=== PATIENT | female | born 1985 | race American Indian/Alaskan Native ===

== ENCOUNTER 2018-07-27 16:12 | Inpatient (IN) | payer OTHER ==
--- NOTE | 2018-07-27 16:46 | C.PDOC ---
History Of Present Illness 32 y/o female, w/PMhx of depression and anxiety, presents to the ER complaining of anxiety and possible suicidal ideation. Patient states that she started a new job recently. Patient reports that she was late to her work earlier, she was late to work again today. She notes that she was drinking today. Denies having homicidal ideation, fall, trauma, injuries, CP, SOB, fever, and chills. Time Seen by Provider: 07/27/18 16:45 Chief Complaint (Nursing): Anxiety History Per: Patient History/Exam Limitations: no limitations Onset/Duration Of Symptoms: Days Current Symptoms Are (Timing): Still Present Severity: Moderate Past Medical History Reviewed: Historical Data, Nursing Documentation, Vital Signs Vital Signs: Last Vital Signs Temp 97.5 F L 07/27/18 16:17 Pulse 101 H 07/27/18 16:17 Resp 18 07/27/18 16:17 BP 133/91 H 07/27/18 16:17 Pulse Ox 98 07/27/18 19:59 - Medical History PMH: Anxiety, Depression, Seizures Surgical History: No Surg Hx Family History: States: No Known Family Hx - Social History Hx Alcohol Use: Yes Hx Substance Use: No - Immunization History Hx Tetanus Toxoid Vaccination: No Hx Influenza Vaccination: No Hx Pneumococcal Vaccination: No Review Of Systems Except As Marked, All Systems Reviewed And Found Negative. Constitutional: Negative for: Fever, Chills Cardiovascular: Negative for: Chest Pain Respiratory: Negative for: Shortness of Breath Psych: Positive for: Anxiety Physical Exam - Physical Exam Appears: Other (anxious) Skin: Normal Color, Warm, Dry Head: Atraumatic, Normacephalic Eye(s): bilateral: Normal Inspection Nose: Normal Oral Mucosa: Moist Neck: Supple, Other (no meningeal signs) Chest: Symmetrical Cardiovascular: Rhythm Regular Respiratory: Normal Breath Sounds, No Rales, No Rhonchi, No Wheezing Gastrointestinal/Abdominal: Normal Exam, Soft, No Tenderness, No Guarding, No Rebound Extremity: Normal ROM Extremity: Bilateral: Atraumatic Neurological/Psych: Oriented x3, Normal Speech, Normal Motor, Normal Sensation Gait: Steady ED Course And Treatment - Laboratory Results Result Diagrams: 07/27/18 17:31 07/27/18 17:31 O2 Sat by Pulse Oximetry: 98 (RA) Pulse Ox Interpretation: Normal Medical Decision Making Medical Decision Making: Well appearing 32 yr old female p/w anxiety w/ recent work related stressor. Normal neuro exam. Good gait. No meningeal signs. Noted drinking today but is clincally sober on my exam. Pending labs. 1800 Paged crisis: Crisis to see pt labs resulted alcohol elevated 1999 labs unremarkable medically clear seen by crisis: to be admitted by Dr. Betts For MDD Disposition - Disposition Disposition Time: 20:00 Condition: GOOD Forms: [facility] (Peruvian) - Clinical Impression Clinical Impression: MDD (major depressive disorder) - Scribe Statement The provider has reviewed the documentation as recorded by the Scribe Stas Diallo Provider Attestation: All medical record entries made by the Scribe were at my direction and personally dictated by me. I have reviewed the chart and agree that the record accurately reflects my personal performance of the history, physical exam, medical decision making, and the department course for this patient. I have also personally directed, reviewed, and agree with the discharge instructions and disposition.
[2018-07-27 17:37] LABS: BASO % 0.9 % (0.0-2.0); EOS % 0.4 % (0.0-4.0); HEMOGLOBIN 13.2 g/dL (11.0-16.0); LYMPH % 55.7 % (20.0-40.0); MEAN CORPUSCULAR HEMOGLOBIN 30.9 pg (27.0-31.0); MEAN PLATELET VOLUME 7.9 fL (7.2-11.7); MONO # 0.5 K/uL (0.0-0.8); MONO % 8.7 % (0.0-10.0); NEUT # 1.8 K/uL (1.8-7.0); NEUT % 34.3 % (50.0-75.0); NRBC % 0.4 % (0.0-2.0); RBC 4.25 Mil/uL (3.80-5.20); RED CELL DISTRIBUTION WIDTH 14.5 % (11.5-14.5); WHITE BLOOD COUNT 5.3 K/uL (4.8-10.8)
[2018-07-27 17:43] LABS: SQUAMOUS EPITHIAL 2 /hpf (0-5); URINE BACTERIA RARE (<OCC); URINE BILIRUBIN NEGATIVE (NEGATIVE); URINE BLOOD NEGATIVE (NEGATIVE); URINE CLARITY Clear (Clear); URINE COLOR Yellow (YELLOW); URINE GLUCOSE (UA) NORMAL (Normal); URINE LEUKOCYTE ESTERASE 2+ Leu/uL (Negative); URINE PROTEIN NEGATIVE (NEGATIVE); URINE UROBILINOGEN NORMAL mg/dL (0.2-1.0)
[2018-07-27 17:53] LABS: BARBITURATES, UR NEGATIVE (NEGATIVE); BENZODIAZEPINES, UR NEGATIVE (NEGATIVE); OPIATES, UR NEGATIVE (NEGATIVE); PHENCYCLIDINE, UR NEGATIVE (NEGATIVE)
[2018-07-27 17:58] LABS: ALB/GLOB RATIO 1.3 (1.0-2.1); ALBUMIN 4.6 g/dL (3.5-5.0); ALT/SGPT 87 U/L (9-52); AST/SGOT 90 U/L (14-36); BLOOD UREA NITROGEN 6 mg/dL (7-17); CALCIUM 9.4 mg/dl (8.6-10.4); GFR NON-AFRICAN AMERICAN > 60
[2018-07-27 17:59] LABS: ACETAMINOPHEN < 10.0 ug/mL (10.0-30.0); SALICYLATE < 1.0 mg/dL 1
--- NOTE | 2018-07-27 21:23 | PCM.BM ---
<Salazar Tay - Last Filed: 07/27/18 21:22> Treatment Plan Problems - Problems identified on initial assessmt Anxiety Date Initiated: 07/27/18 Time Initiated: 21:22 Status: Active Depression Date Initiated: 07/27/18 Time Initiated: 21:22 Status: Active Treatment assets and liabiliti Patient Assests: cooperative, educated, ADL independent, good support system (Parents involved in care), negotiates basic needs, cognitively intact Patient Liabilities: financial problems (Unemployed), substance abuse (Alcohol), medical problems (Anxiety, Depression) - Milieu Protocol Maintain good personal hygiene: daily Encourage regular showers, daily Remind patient to perform daily oral care, every shift Assist patient to perform ADL's Conduct patient checks and document Observation sheet: Q15 minutes (For safety) Maintain personal safety: every shift Educate patient to report safety concerns to staff, every shift Monitor environment for contraband/sharps Medication safety: Monitor for expected outcome, potential side effects: every shift, Assess barriers to learning: every shift, Assess readiness for medication education: every shift <Dhiraj Betts - Last Filed: 07/28/18 11:33> - Diagnosis (1) MDD (major depressive disorder) Status: Acute Interventions: 07/28/18 11:34 * Assess/adjust medications daily and /or as needed * See patient on an individual basis 7x/week to assess symptoms of depression * Monitor for side effects & effectiveness of medications * (2) Alcohol use disorder, severe, dependence Status: Acute Interventions: 07/28/18 11:34 * Assess 7x/week regarding severity of withdrawal * Educate regarding risks, benefits, side effects and alternatives of medications * Use Motivational Interviewing for abstinence * Use CBT for relapse prevention * Medication management for withdrawal symptoms * Encourage medication assisted treatment * <Bhavani Ordonez - Last Filed: 07/28/18 14:10> Family Contact Family involvement: Famliy/SO not involved - Goals for Treatment Patient goals for treatment: "I need an outpatient program." Discharge/Continuing Care - Education Needs Education Needs: Patient Medication, Patient Coping Skills - Discharge Discharge Criteria: Tolerates medication w/o severe side effects, Reduction of target symptoms Discharge to:: Home - Treatment Team Participation Discussed with Family/SO: No Was Patient/Family/SO present at Treatment Team Meeting: Yes
[2018-07-28 06:42] VITALS: O2SAT 100
[2018-07-28] MEDS: Multiple Vitamins Tab PO SCH (10:26)
--- NOTE | 2018-07-28 15:27 | PCM.PSYCH ---
Addendum entered and electronically signed by Dhiraj Betts MD 07/28/18 23:25: Pt seen and evaluated with the resident. Agreed with the findings. Major depressive disorder recurrent severe without psychotic features Alcohol use disorder severe Alcohol withdrawal Original Note: Initial Psychiatric Evaluation - Initial Psychiatric Evaluation Type of Admission: Voluntary Legal Status: Capacity Chief Complaint (in patient's own words): "I'm tired" History of Present Illness and Precipitating Events: Ms. Christian is a 32 y/o female with history of depression and anxiety admitted through [facility] with complaints of anxiety and possible suicidal ideation. She states she overslept for job training and didn't call to inform her new employer of her tardiness. She instead became increasingly anxious and coped by drinking several shots of vodka. 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 She has a fear of getting fired or failing at endeavors, which triggers her anxiety attacks. She has moved 5 times in the last 3 years and is planning on leaving her current situation due to not being on the lease and being kicked out. She states that she has arranged future accommodations in [place] by surfing the internet. Patient's story fluctuates with her level of alertness; she does not make eye contact and spent most of the interview with her head buried in her arms, appearing to fall asleep and wake herself up repeatedly during the interview. She was diagnosed with anxiety in 2004 and was taking Wellbutrin and Xanax at that time but denies any current medications. She has not been compliant with seeing her psychiatrist on a regular basis since she does not think she has any issues. FamHx: dad: depression, PGM: bipolar, MGF: EtOH abuse PMH: denies Meds: denies All: denies Current Medications: Active Medications Generic Name Dose Route Start Last Admin Trade Name Freq PRN Reason Stop Dose Admin Clonidine HCl 0.1 mg 07/27/18 23:41 Catapres PO Q4H PRN Symptoms of alcohol withdrawl Folic Acid 1 mg 07/28/18 10:00 07/28/18 10:22 Folic Acid PO 1 mg DAILY PRANAV Administration Hydroxyzine HCl 25 mg 07/27/18 21:58 07/27/18 22:09 Atarax PO 25 mg Q6 PRN Administration Anxiety Lorazepam 1 mg 07/27/18 23:41 Ativan PO Q4H PRN Symptoms of alcohol withdrawl Lorazepam 2 mg 07/27/18 23:45 07/28/18 13:01 Ativan PO 08/01/18 23:44 Not Given Q4 PRANAV Taper Multivitamins 1 tab 07/28/18 10:00 07/28/18 10:26 Hexavitamin PO 1 tab DAILY PRANAV Administration Nicotine 1 patch 07/28/18 11:30 07/28/18 12:30 Nicoderm Cq TD 1 patch DAILY PRANAV Administration Pneumococcal Polyvalent Vaccine 0.5 ml 07/29/18 10:00 Pneumovax 23 Vaccine IM 07/29/18 10:01 .ONCE ONE Thiamine HCl 100 mg 07/28/18 10:00 07/28/18 10:34 Vitamin B1 Tab PO 100 mg DAILY PRANAV Administration Trazodone HCl 50 mg 07/27/18 23:41 Desyrel PO HS PRN Insomnia Past Psychiatric History - Past Psychiatric History Previous Treatment History: Inpatient Pertinent Medical Hx (Current Medical&Sleep Prob, Allergies): Allergies Allergy/AdvReac Type Severity Reaction Status Date / Time No Known Allergies Allergy Verified 07/27/18 16:23 No Known Home Med 07/27/18 Review of Systems - Neurological Neurological: absent: Convulsions, Disequilibrium, Dizziness, Numbness, Focal Weakness, Headaches, Paresthesias, Tingling, Tremor - Psychiatric Psychiatric: Abnormal Sleep Pattern, Anhedonia, Anxiety, Change in Appetite, Confusion, Depression, Difficulty Concentrating, Hopelessness, Panic Attacks. absent: Auditory Hallucinations, Behavioral Changes, Change in Libido, Hallucinations, Homicidal Ideation Mental Status Examination - Personal Presentation Personal Presentation: Looks stated age - Affect Affect: Blunted - Motor Activity Motor Activity: Calm - Reliability in Providing Information Reliability in Providing Information: Fair - Speech Speech: Disorganized - Mood Mood: Depressed, Anxious - Formal Thought Process Formal Thought Process: No Impairment - Cognitive Functions Orientation: Person, Place, Situation, Time Sensorium: Drowsy Attention/Concentration: Attentive Estimate of Intelligence: Average Judgement: Imparied, as evidence by: Poor judgement, Imparied, as evidence by: Lack of insight into illness Memory: Recent impaired, as evidence by: Inability to recall events of the day - Risk Risk: Suicidal DSM 5 DX - DSM 5 DSM 5 Diagnosis: alcohol abuse - withdrawal generalized anxiety disorder depression disorder - Recommended/Plan of Treatment Treatment Recommendations and Plan of Treatment: Ativan taper folic acid, MVI, thiamine [facility] CBT monitor for seizures and withdrawal, DTs group therapy and activities add gabapentin if indicated problem solving skills 28min - Smoking Cessation Smoking Cessation Initiated: No
[2018-07-29] MEDS ORDERED: Pneumococcal 23-Valent Vaccine IM ONE (10:00)
[2018-07-29] MEDS: Multiple Vitamins Tab PO SCH (10:46)
--- NOTE | 2018-07-29 11:42 | PCM.PYCHPN ---
Psychiatric Progress Note - Psychiatric Progress Note Patient seen today, length of contact: 15 min Patient Chief Complaint: I am feeling little better.' Problems Identified/Issues Discussed: Patient seen and evaluated, chart reviewed and discussed with the nurse. She reports improvement in depressed mood and irritability. She reports improvement in the withdrawal symptoms. She denies any AVH or any paranoia. Patient is compliant with medications and denies any side effects. Symptoms are improving but need more time to stabilize. Support and psychoeducation given. Medication Change: Yes Medical Record Reviewed: Yes Mental Status Examination - Cognitive Function Orientation: Person, Place, Situation, Time Memory: Intact Attention: WNL Concentration: Poor Association: WNL Fund of Knowledge: Poor - Mood Mood: Depressed, Anxious - Affect Affect: Blunted - Speech Speech: Soft - Formal Thought Process Formal Thought Process: No Impairment - Suicidal Ideation Suicidal Ideation: No - Homicidal Ideation Homicidal Ideation: No Goal/Treatment Plan - Goal/Treatment Plan Need for Continued Stay: Severe depression anxiety, Severe functional impairment Progress Toward Problem(s) and Goals/Treatment Plan: Major depressive disorder recurrent moderate alcohol abuse - withdrawal generalized anxiety disorder Ativan taper folic acid, MVI, thiamine [place] counseling CBT monitor for seizures and withdrawal, DTs group therapy and activities add gabapentin if indicated problem solving skills - Smoking Cessation Smoking Cessation Initiated: No
[2018-07-30 06:18] VITALS: BP 100/67; PULSE 73; RESP 20; TEMP 97.5
[2018-07-30] MEDS: Multiple Vitamins Tab PO SCH (09:54)
--- NOTE | 2018-07-30 10:54 | PCM.PYCHDC ---
Mental Status Examination - Mental Status Examination Orientation: Person, Place, Situation, Time Memory: Intact Mood: Neutral Affect: Constricted Speech: Soft Attention: WNL Concentration: WNL Association: WNL Fund of Knowledge: WNL Formal Thought Process: No Impairment Description of patient's judgement and insight: good, fair Psychotic Thoughts and Behaviors: denies any AVH Suicidal Ideation: No Current Homicidal Ideation?: No Discharge Summary - Discharge Note Reason for Hospitalization: Ms. Christian is a 32 y/o female with history of depression and anxiety admitted through [facility] with complaints of anxiety and possible suicidal ideation. She states she overslept for job training and didn't call to inform her new employer of her tardiness. She instead became increasingly anxious and coped by drinking several shots of vodka. 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 She has a fear of getting fired or failing at endeavors, which triggers her anxiety attacks. She has moved 5 times in the last 3 years and is planning on leaving her current situation due to not being on the lease and being kicked out. She states that she has arranged future accommodations in [place] by surfing the internet. Patient's story fluctuates with her level of alertness; she does not make eye contact and spent most of the interview with her head buried in her arms, appearing to fall asleep and wake herself up repeatedly during the interview. She was diagnosed with anxiety in 2004 and was taking Wellbutrin and Xanax at that time but denies any current medications. She has not been compliant with seeing her psychiatrist on a regular basis since she does not think she has any issues. FamHx: dad: depression, PGM: bipolar, MGF: EtOH abuse PMH: denies Consultations:: List each consultation separately and include: 1. Reason for request. 2. Findings. 3. Follow-up Summary of Hospital Course include:: 1. Description of specific treatment plan utilized for patients during their course of treatmen. 2. Summarize the time- course for resolution of acute symptoms and/or regressed behaviors. 3. Describe issues identified and worked on during hospitalization. 4. Describe medication utilized. 5. Describe medical problems identified and treated. 6. Reassessment of suicide risk Summary of Hospital Course: During the course of her stay, patient (pt) started progressively improving and no longer remained irritable, depressed, and suicidal. Mirtazapine and wellbutrin were started and pt showed a very good response. Her mood and anxiety were improved and she started attending groups and meetings and started socializing. Patient denied any feelings of hopelessness, helplessness, and worthlessness, denied any problem with the sleep or appetite, denied suicidal ideation or homicidal ideation. Pt denied any auditory or visual hallucinations. She denied any withdrawal symptoms. Pt was treated with medications along with supportive therapy, milieu therapy and group therapy. Some changes were made in her current medications and patient was discharged on following medications. She tolerated these medications very well and denied any side effects. - Diagnosis (1) MDD (major depressive disorder) Status: Acute (2) Alcohol use disorder, severe, dependence Status: Acute - Final Diagnosis (DSM 5) Condition upon Discharge: GOOD DSM 5: Major depressive disorder recurrent moderate alcohol abuse - withdrawal generalized anxiety disorder Disposition: HOME/ ROUTINE Follow-up Treatment Plan: Followup: She was discharged to the [facility]. Education: Pt was educated and counseled about the risks and benefits of taking and not taking medications. Pt was educated and counseled about the risks of drinking and abusing drugs. Pt was educated and counseled to go to the ER or call 911 if pt develop suicidal ideation or homicidal ideation, worsening of symptoms or severe side effects of the meds. Prescriptions/Medication Reconciliation: buPROPion [Wellbutrin] 75 mg PO DAILY #30 tab Mirtazapine [Remeron] 30 mg PO HS #30 tab traZODone [Desyrel] 50 mg PO HS PRN #30 tab PRN Reason: Insomnia - Smoking Cessation Smoking Cessation Medication prescribed: No - Antipsychotic Medications Pt discharged on 2 or more routine antipsychotic medications: No
== END 2018-07-30 11:15 | disposition home or self-care (01) | DRG 430 ==
LOC: C.ER 16:12 → C.9E 20:01 → C.5E 20:16
PROVIDERS: ADMIT Psychiatry & Neurology Psychiatry; ATTEND Psychiatry & Neurology Psychiatry
PROC: GZHZZZZ Group Psychotherapy (ICD-10-PCS; principal; 2018-07-27)
PROC: GZ56ZZZ Individual Psychotherapy, Supportive (ICD-10-PCS; 2018-07-27)
DX: F33.1 Major depressive disorder, recurrent, moderate (principal); F10.230 Alcohol dependence with withdrawal, uncomplicated; F41.1 Generalized anxiety disorder; Z91.19 Patient's noncompliance with other medical treatment and regimen; F10.220 Alcohol dependence with intoxication, uncomplicated; Y90.8 Blood alcohol level of 240 mg/100 ml or more